=== PATIENT | female | born 1955 | race Caucasian/White ===

== ENCOUNTER → 2016-11-23 | Outpatient (CLI) | payer MEDICARE, MEDICAID ==
[~2016-11-23] MED LIST: ASA CHILDREN'S81 MG PO; AUGMENTIN875 MG PO; DULERA 200/58.8 GM IH; GLUCOPHAGE-DPS500 MG PO; LOTENSIN HCT 201 TAB PO; MEVACOR40 MG PO; MICRONASE DPS5 MG PO; MIRALAX17 GM PO; NEURONTIN DPS300 MG PO; OMEGA-3 DPS1000 MG PO; TANZEUM30 MG/0.5 SQ; TYLENOL DPS325 MG PO; ULTRAM DPS50 MG PO; VITAMIN D1000 UNI1 PO
== END | disposition home or self-care (01) ==
LOC: RAD.S 09:18
DX: R94.5 Abnormal results of liver function studies (principal); K76.0 Fatty (change of) liver, not elsewhere classified; Z90.49 Acquired absence of other specified parts of digestive tract